=== PATIENT | female | born 1960 | race African-American/Black ===

== ENCOUNTER → 2017-04-04 | Outpatient (CLI) | payer OTHER ==
[~2017-04-04] MED LIST: IBUPROFEN 800800 MG PO; LOVASTATIN 20 M20 MG PO; METFORMIN HCL500 MG PO; NORCO 5-325 TA1 EACH PO; RAMIPRIL5 MG PO
== END ==
LOC: RAD 03:10
DX: Z12.31 Encounter for screening mammogram for malignant neoplasm of breast (principal)

== ENCOUNTER → 2018-09-15 | Outpatient (CLI) | payer OTHER | LOC: RAD 10:20 | DX: Z12.31 Encounter for screening mammogram for malignant neoplasm of breast (principal) ==

== ENCOUNTER → 2019-09-06 | Outpatient (CLI) | payer OTHER | LOC: RAD 01:43 | DX: Z12.31 Encounter for screening mammogram for malignant neoplasm of breast (principal) ==

== ENCOUNTER → 2020-10-16 | Outpatient (CLI) | payer OTHER | LOC: BC 08:38 | PROVIDERS: ATTEND Neuromusculoskeletal Medicine & OMM | DX: Z12.31 Encounter for screening mammogram for malignant neoplasm of breast (principal) ==

== ENCOUNTER → 2021-10-17 | Outpatient (CLI) | payer OTHER | LOC: BC 10:00 | PROVIDERS: ATTEND Neuromusculoskeletal Medicine & OMM | DX: Z12.31 Encounter for screening mammogram for malignant neoplasm of breast (principal); N64.89 Other specified disorders of breast ==